=== PATIENT | female | born 1995 | race Caucasian/White ===

== ENCOUNTER 2018-08-28 09:01 | Outpatient (REF) | payer SELFPAY ==
--- NOTE | 2018-08-28 08:30 | PAPFT_PTH ---
PATIENT: TERI MOYA LOC: [facility] U#:[id number] AGE/SX: 23/F ROOM: RE08/28/[address]: Ryanne Cristobal : 1995 BED: DIS: 08/28/2018 SPEC #: [id number] RECD: 08/29/18 12:45 STATUS: RICHARD REJerson #: [id number] CRESENCIO: 08/28/18 08:[address]: Ryanne Cristobal DEPT: [facility] Cytology RECD BY: Kandi Tabor ENTERED: 08/29/18 12:45 SP TYPE: PAPFT OTHR DR: Ori Donahue Tissues: 1 - CX/ENDOCX FOR PAP SMEARS Procedures: PAP THIN PREP/[facility] Screening HPV DNA PROBE Comments: [id number] (CHLAMYDIA/GC)
[2018-08-30 13:43] LABS: Chlamydia Result Negative; GC Result Negative; Specimen Description SEE COMMENTS
== END 2018-08-28 09:21 ==
LOC: NCHCN 09:01
PROVIDERS: PCP Internal Medicine; Visit Provider Nurse Practitioner Family
DX: Z12.4 Encounter for screening for malignant neoplasm of cervix (principal); Z01.419 Encounter for gynecological examination (general) (routine) without abnormal findings; Z11.3 Encounter for screening for infections with a predominantly sexual mode of transmission; Z11.51 Encounter for screening for human papillomavirus (HPV)
CPT/HCPCS: 87491; 87591; 88142; 87624